=== PATIENT | female | born 1935 | race Caucasian/White ===

== ENCOUNTER → 2017-01-16 | Outpatient (CLI) | payer OTHER ==
[~2017-01-16] MED LIST: ACETAMINOPHEN PO; ACTOS PO; ADVIL200 M2 PO; ALBUTEROL20 ml INH; ARIMIDEX1 MG PO; AVAPRO PO; CALCIUM PO; COUMADIN PO; FOSAMAX PO; GLUCOSAMINE CHROND; NEURONTIN600 MG; NORCO 5/325 TAB1 TAB PO; NOVOLIN 70/30 U13 ML INJ; NOVOLIN 70/30 V10 M1; NOVOLIN 70/30 V10 ML INJ; PREVACID PO; SPIRIVA18 MCG INH; STOOL SOFTENER PO; SYMBICORT INH; TRENTAL400 MG PO; VIT E PO; VITAMIN B 6 PO; VITAMIN C PO; VITAMIN E400 UNI2 PO; VITAMINB; VYTORIN 10/40 T1 TAB PO; [UNRECOGNIZED DRUG - OTHER] PO
--- NOTE | ~2017-01-16 | US10 ---
[id number] [facility] [address]. [place], [place] [address] [id number] O MR#: [id number] Acc #: [id number] NAME: LENNIE JERONIMO : 1935 SEX: F STUDY DATE/TIME: 01/16/2017 10:27 UNIT: [facility] ROOM: STUDY DESCRIPTION: US Aorta Complete Attending Physician: Carl Reeves M.D. Ordering Physician: Carl Reeves M.D. Primary Care Physician: Carl Reeves M.D. MEDICAL IMAGING REPORT This report is preliminary unless electronic signature is present EXAM Abdominal aorta ultrasound. INDICATION Follow up infrarenal abdominal aorta aneurysm. PROCEDURE Bethea-scale, color Doppler, and spectral imaging of the abdominal aorta. COMPARISON 01/05/2016 FINDINGS Atherosclerotic irregularity throughout the abdominal aorta. Proximal aorta measures 2.5 cm in diameter. The mid aorta measures 2.5 cm in diameter. The distal abdominal aorta measures up to 3.2 cm in diameter, unchanged from the previous study. IMPRESSION Atherosclerotic irregularity throughout the abdominal aorta. Aneurysmal dilation in the distal segment is not significantly changed from the previous study. Dictated by... Negrito Romeo M.D. THIS IS AN ELECTRONICALLY VERIFIED REPORT Negrito Romeo M.D. at 01/18/2017 7:17 AM LESLEY/trevin TD: 01/17/2017 18:37 JOB #: [id number] MEDICAL IMAGING REPORT Page 1 of 1 COPY
--- NOTE | ~2017-01-16 | US128 ---
[id number] [facility] [address] [place], [place] [address] [id number] O MR#: [id number] Acc #: [id number] NAME: LENNIE JERONIMO : 1935 SEX: F STUDY DATE/TIME: 01/16/2017 10:15 UNIT: [facility] ROOM: STUDY DESCRIPTION: Thyroid Attending Physician: Carl Reeves M.D. Ordering Physician: Carl Speck Dyer Leandro Primary Care Physician: Carl Reeves M.D. MEDICAL IMAGING REPORT This report is preliminary unless electronic signature is present EXAM Thyroid ultrasound 01/16/1970 INDICATIONS 81-year-old female with a thyroid nodule. TECHNIQUE Sonographic imaging of the thyroid was performed. COMPARISON 06/27/2016 FINDINGS The right thyroid lobe measures 2.0 x 6.0 x 3.1 cm and the left measures 1.5 x 2.4 x 3.3 cm. The thyroid gland is heterogeneous throughout. Thyroid isthmus measures about 5 mm. In the lower pole right thyroid lobe there is a complicated cystic lesion measuring up to a minimum diameter of 1.9 cm which is unchanged. There is internal debris within the lesion. There is a second small solid nodule in the upper pole right thyroid lobe measuring about 8 x 7 mm. It contains no microcalcifications. Additional small nodule or heterogeneous area of thyroid tissue in the mid pole right thyroid lobe measures up to about 13 x 11 mm. No microcalcifications within it. In the lower pole left thyroid lobe there is a shadowing calcification measuring about 7 x 6 mm. IMPRESSION 1. Bilateral thyromegaly. No new nodules meeting size criteria for fine-needle aspiration at this time. The dominant complicated cyst in the right thyroid lobe measures a minimum diameter of 1.9 cm which is not significantly changed. The other smaller nodules can be followed with a repeat ultrasound in 6-12 months. Dictated by... Rodriguez Fritz M.D. THIS IS AN ELECTRONICALLY VERIFIED REPORT Rodriguez Fritz M.D. at 01/18/2017 11:28 AM MIKIE/david TD: 01/17/2017 19:42 JOB #: [id number] MEDICAL IMAGING REPORT Page 1 of 1 COPY
== END | disposition home or self-care (01) ==
LOC: CWCC 09:36
DX: I71.4 Abdominal aortic aneurysm, without rupture (principal); E04.1 Nontoxic single thyroid nodule
CPT/HCPCS: 76536; 76770